=== PATIENT | male | born 1975 | race Two or more races ===

== ENCOUNTER → 2016-07-21 | Outpatient (CLI) | payer BC, OTHER ==
[~2016-07-21] MED LIST: GASTROGRAFIN SOLUTION 30ML (Q9963) As Ordered ONE; ISOVUE-370 76% 100ML VIAL (Q9967) As Ordered ONE
--- NOTE | 2016-07-22 04:55 | REP ---
Clinical: Abdominal pain and diarrhea. Technique: Axial contrast enhanced images from the lung bases to the pubic symphysis using oral and 100 ml Isovue 370 intravenous contrast material with coronal and sagittal re-formations. Findings: Lung bases are clear. Visualized heart and pericardium normal. Liver, spleen, pancreas, gallbladder, bilateral adrenal glands and kidneys are normal. The enteric system is without obstruction or acute inflammatory process and a normal terminal ileum and appendix are identified in the right lower quadrant. Pelvis demonstrates normal bladder and age appropriate prostate/seminal vesicles. Moderate fat containing inguinal hernias noted (right greater than left). No pelvic fluid or ascites. No significant intraperitoneal or retroperitoneal adenopathy. Abdominal aorta and vasculature appears normal. Musculoskeletal structures are intact. Impression: Fat containing inguinal hernias (right greater than left). No acute intra-abdominal or pelvic pathology appreciated. Signed by Ezekiel Nagel MD 07/22/2016 04:46 A
== END ==
LOC: M RAD 13:05
PROVIDERS: ATTEND Internal Medicine Gastroenterology
DX: R10.84 Generalized abdominal pain (principal); R19.7 Diarrhea, unspecified; K40.20 Bilateral inguinal hernia, without obstruction or gangrene, not specified as recurrent
CPT/HCPCS: 74178; Q9963; Q9967

== ENCOUNTER → 2016-08-18 | Outpatient (CLI) | payer BC, OTHER | LOC: M LAB 18:47 | PROVIDERS: ATTEND Internal Medicine Gastroenterology | DX: K52.9 Noninfective gastroenteritis and colitis, unspecified (principal) ==